=== PATIENT | male | born 1985 | race Caucasian/White ===

== ENCOUNTER 2016-12-31 05:40 | Emergency (ER) | payer OTHER ==
[~2016-12-31] VITALS: Ht 188 cm; Wt 124.4 kg
[2016-12-31 05:52] VITALS: BP 155/66
--- NOTE | 2016-12-31 05:57 | NUR ---
31Y M BIB SELF c/o abscess on left side of buttox/sacral area. painful near testes. PT STATES MORE DISCOMFORT THEN PAIN. PT AAOX4. BREATHING IS UNLABORED AND CLEAR BILAT. PT DENIES ANY N/V/D, CP,OB AT THE MOMENT.
--- NOTE | 2016-12-31 05:58 | NUR ---
Patient ambulated to bed 05.
--- NOTE | 2016-12-31 06:16 | NUR ---
LIDOCAINE WITH EPI PULLED AND AT BEDSIDE FOR
[2016-12-31] MEDS ORDERED: LIDOCAINE/EPI 2% 1:100000 20 ML VIAL INJ ONE (06:17)
[2016-12-31] MEDS ORDERED: cefTRIAXone 1,000 MG in LIDOCAINE 1% ED 2.1 ML IM ONE (06:40)
--- NOTE | 2016-12-31 07:05 | NUR ---
Patient discharged with v/s stable. Written and verbal after care instructions given and explained. Patient alert, oriented and verbalized understanding of instructions. Ambulatory with steady gait. All questions addressed prior to discharge. ID band removed. Patient advised to follow up with PMD. Rx of NORCO 5/325 AND CLEOCIN 300MG given. Patient educated on indication of medication including possible reaction and side effects. Opportunity to ask questions provided and answered.
[2016-12-31 07:17] VITALS: BP 144/72
== END 2016-12-31 07:05 | disposition home or self-care (01) ==
LOC: MED 05:40
DX: L03.317 Cellulitis of buttock (principal); R50.9 Fever, unspecified; E11.9 Type 2 diabetes mellitus without complications; F17.200 Nicotine dependence, unspecified, uncomplicated
CPT/HCPCS: 96372; 99283; J0696; J2001